=== PATIENT | male | born 1995 | race African-American/Black ===

== ENCOUNTER 2020-01-28 17:41 | Emergency (ER) | payer OTHER ==
[2020-01-28] MEDS ORDERED: Ketorolac Tromethamine 30 MG/ML VIAL ONE (18:47)
--- NOTE | 2020-01-28 19:36 | RAD ---
RIGHT ANKLE THREE VIEWS: 01/28/20 HISTORY: Ankle injury. There are no signs of fracture or dislocation. No joint effusion. IMPRESSION: Negative right ankle. POS: OFF
--- NOTE | 2020-01-28 19:46 | RAD ---
RIGHT FOOT THREE VIEWS: 01/28/20 HISTORY: Foot injury. Transversely oriented fractures through the second metatarsal shaft is present. A more obliquely orie nted fracture through the third metatarsal neck and oblique oriented fracture through the fourth meta tarsal head. These fractures are not significantly displaced. No other findings. IMPRESSION: Second, third, and fourth metatarsal fractures. POS: OFF
== END 2020-01-28 19:38 ==
LOC: ERS 17:41
DX: S92.321A Displaced fracture of second metatarsal bone, right foot, initial encounter for closed fracture (principal); S92.331A Displaced fracture of third metatarsal bone, right foot, initial encounter for closed fracture; S92.341A Displaced fracture of fourth metatarsal bone, right foot, initial encounter for closed fracture; F31.9 Bipolar disorder, unspecified; F20.9 Schizophrenia, unspecified; F17.210 Nicotine dependence, cigarettes, uncomplicated; X50.9XXA Other and unspecified overexertion or strenuous movements or postures, initial encounter
CPT/HCPCS: 96372; J1885